=== PATIENT | male | born 1990 | race Caucasian/White ===

== ENCOUNTER → 2017-04-22 | Outpatient (REF) | payer OTHER | LOC: M SFHCLERA 16:34 | PROVIDERS: ATTEND Nurse Practitioner Family | DX: R10.9 Unspecified abdominal pain (principal) | CPT/HCPCS: 87086; 87491; 87591; 96372; G0463; J0696 ==

== ENCOUNTER → 2019-01-01 | Outpatient (CLI) | payer OTHER ==
[~2019-01-01] MED LIST: CONRAY-43 43% 50ML VIAL (Q9960) As Ordered ONE; PROHANCE 279.3MG/ML 5ML VIAL (A9576) As Ordered ONE
--- NOTE | 2019-01-01 09:08 | REP ---
MR ARTHROGRAM OF THE LEFT SHOULDER: TECHNIQUE: Axial T2 fat sat, coronal oblique T1, T2 fat sat, post arthrogram axial T1 fat sat, proton density, coronal oblique T1 fat sat, T2 sat, sagittal oblique T2 fat sat, ABER T1 fat sat. There is mild increased signal diffusely on T2-weighted images in the supraspinatus tendon compatible with mild to moderate diffuse tendinopathy/tendinitis. I do not see a discrete rotator cuff tendon tear. There are mild hypertrophic degenerative changes of the acromioclavicular joint with mild subchondral marrow edema. There is downward sloping of the acromion, which is type 1. The biceps tendon is within the bicipital groove with a small amount of surrounding fluid. There is no Hill-Sachs deformity. The deltoid muscle demonstrates no abnormal signal. Biceps labral complex is intact. There is a tear of the anterior/inferior labrum with associated paralabral cyst measuring 3 mm in diameter. There is a tear of the posterior labrum diffusely with an associated paralabral cyst somewhat superiorly measuring about 5 mm maximally and another paralabral cyst more inferiorly along the posterior labrum measuring about 5 mm in maximum diameter. No other abnormal bone marrow signal is seen. There is no occult fracture. Mild fluid is seen in the subacromial subdeltoid bursae. IMPRESSION: Mild to moderate supraspinatus tendinopathy/tendinitis. I do not see evidence of a discrete rotator cuff tear. There are mild hypertrophic degenerative changes of the acromioclavicular joint with subchondral marrow edema and downward sloping of the acromion, which is type 1. There is a tear of the anterior labrum at its inferior aspect with an associated 3 mm paralabral cyst. There is diffuse tear of the posterior labrum with two associated paralabral cysts. There is a small amount of fluid in the subacromial, subdeltoid bursae. Please note the tear of the inferior aspect of the anterior labrum does appear to extend somewhat into the inferior labrum itself. Electronically Signed by Nate Shea MD 01/04/2019 10:53 A
--- NOTE | 2019-01-01 16:44 | REP ---
Procedure: Left shoulder arthrogram The procedure was performed under the direct supervision of Dr. Shea. History: Left shoulder pain The benefits and risks including but not limited to pain, infection, bleeding and anaphylaxis were explained to the patient and informed consent was obtained. Technique: The left glenohumeral joint space was localized using fluoroscopic guidance. The skin was prepped and draped in a sterile fashion. 1% lidocaine was used as a local anesthetic. Using fluoroscopic guidance a 22 gauge spinal needle was inserted and advanced into the joint. 0.5 ml of Conray 43 was injected to verify placement. 11 ml of a solution containing 20 ml of sterile saline and 0.15 ml of ProHance was injected into the joint. The needle was removed and the patient was taken to MRI for postprocedural imaging. The patient tolerated the procedure well and there were no immediate complications. Less than 6 seconds of fluoro time was utilized for this procedure. Reviewed by MAGDY Varner 01/01/2019 03:12 P Electronically Signed by Nate Shea MD 01/01/2019 04:35 P
== END ==
LOC: M RADPRO 06:14
PROVIDERS: ATTEND Clinical Nurse Specialist Psychiatric/Mental Health, Adult
DX: M75.80 Other shoulder lesions, unspecified shoulder (principal); M25.512 Pain in left shoulder
CPT/HCPCS: 23350; 73223; 77002; A9576; Q9960

== ENCOUNTER 2019-05-26 12:25 | Emergency (ER) | payer OTHER ==
[~2019-05-26] VITALS: Ht 188 cm; Wt 90.9 kg
[2019-05-26] MEDS ORDERED: BACT800T5 PO (15:02)
[2019-05-26 15:10] VITALS: BP 136/88
[2019-05-26] MEDS ORDERED: BACTRIM 160MG/800MG DS TAB PO ONE (15:15)
== END 2019-05-26 15:14 | disposition home or self-care (01) ==
LOC: M ED 12:25
DX: L03.113 Cellulitis of right upper limb (principal)